=== PATIENT | female | born 1960 | race Caucasian/White ===

== ENCOUNTER 2018-03-13 14:12 | Emergency (ER) | payer OTHER ==
[~2018-03-13] VITALS: Ht 162.6 cm; Wt 107.0 kg
[2018-03-13] MEDS ORDERED: EFFEXOR XR150 MG PO (14:25)
[2018-03-13] MEDS ORDERED: VASOTEC10 MG PO (14:25)
[2018-03-13] MEDS ORDERED: METFORMIN HCL500 MG PO (14:25)
[2018-03-13] MEDS ORDERED: LIPITOR20 MG PO (14:26)
[2018-03-13] MEDS ORDERED: CLONAZEPAM2 MG PO (14:26)
== END 2018-03-13 17:55 | disposition home or self-care (01) ==
LOC: ER 14:12
DX: N20.1 Calculus of ureter (principal)

== ENCOUNTER 2018-05-02 10:37 | Outpatient (CLI) | payer OTHER ==
[~2018-05-02 10:37] MED LIST: CLONAZEPAM2 MG PO; EFFEXOR XR150 MG PO; LIPITOR20 MG PO; METFORMIN HCL500 MG PO; VASOTEC10 MG PO
== END 2018-05-02 10:46 | disposition home or self-care (01) ==
LOC: RAD 10:37
DX: N20.1 Calculus of ureter (principal)

== ENCOUNTER → 2018-06-14 | Outpatient (CLI) | payer OTHER | END | disposition home or self-care (01) | LOC: MRI 12:18 | DX: M54.5 Low back pain (principal); M54.2 Cervicalgia | CPT/HCPCS: 72141; 72148; 73721 ==

== ENCOUNTER 2019-01-11 08:39 | Outpatient (CLI) | payer OTHER | END 2019-01-11 11:25 | disposition home or self-care (01) | LOC: RAD 501 08:39 | DX: M25.561 Pain in right knee (principal); M25.562 Pain in left knee ==

== ENCOUNTER → 2019-09-11 | Day surgery (SDC) | payer OTHER ==
[~2019-09-11] MED LIST changes: +ADULT LOW DOSE81 M1 PO; +CLARINEX-D 121 EACH PO; +COZAAR100 MG PO; +DULOXETINE HCL40 MG PO; +LYRICA CR165 MG PO; +NABUMETONE750 MG PO; +PERCOCET 5-3251 EACH PO; +PROTONIX40 MG PO; +RESTORIL30 MG PO; +SINGULAIR10 MG PO
== END | disposition home or self-care (01) ==
LOC: CIR.AMB 05:00 → SURG 07:00 → EDSTATUS 07:00 → CIR.AMB 07:00
DX: M23.321 Other meniscus derangements, posterior horn of medial meniscus, right knee (principal); M23.341 Other meniscus derangements, anterior horn of lateral meniscus, right knee

== ENCOUNTER 2019-11-29 09:41 | Outpatient (CLI) | payer OTHER | END 2019-11-29 09:52 | disposition home or self-care (01) | LOC: RAD 09:41 | DX: M25.561 Pain in right knee (principal); M25.562 Pain in left knee ==

== ENCOUNTER 2020-04-01 09:59 | Outpatient (CLI) | payer OTHER | END 2020-04-01 10:08 | disposition home or self-care (01) | LOC: LAB 09:59 | PROVIDERS: ATTEND Urology | DX: N30.00 Acute cystitis without hematuria (principal) ==

== ENCOUNTER → 2021-03-24 13:20 | Outpatient (CLI) | payer OTHER | END | disposition home or self-care (01) | LOC: LAB 13:20 | PROVIDERS: ATTEND Urology | DX: N30.00 Acute cystitis without hematuria (principal) ==

== ENCOUNTER 2021-09-08 08:20 | Inpatient (IN) | payer OTHER ==
[~2021-09-08] VITALS: Ht 162.6 cm; Wt 113.4 kg
== END 2021-09-10 16:38 | DRG 470 ==
LOC: SURH 08:20 → O/R 09:14 → SURH 13:30 → SURG 20:59
PROVIDERS: ADMIT Orthopaedic Surgery; ATTEND Orthopaedic Surgery
PROC: 0SRD0J9 Replacement of Left Knee Joint with Synthetic Substitute, Cemented, Open Approach (ICD-10-PCS; principal; 2021-09-08 13:30)
DX: M17.12 Unilateral primary osteoarthritis, left knee (principal); D62 Acute posthemorrhagic anemia; M85.662 Other cyst of bone, left lower leg; I10 Essential (primary) hypertension; E66.9 Obesity, unspecified; E78.00 Pure hypercholesterolemia, unspecified; M65.9 Synovitis and tenosynovitis, unspecified

== ENCOUNTER 2022-02-17 12:31 | Outpatient (CLI) | payer OTHER | END 2022-02-17 12:33 | disposition home or self-care (01) | LOC: RAD 12:31 | PROVIDERS: ATTEND Orthopaedic Surgery | DX: M25.561 Pain in right knee (principal); M25.562 Pain in left knee ==

== ENCOUNTER → 2022-12-17 | Outpatient (CLI) | payer OTHER | END | disposition home or self-care (01) | LOC: RAD 09:30 | DX: M06.89 Other specified rheumatoid arthritis, multiple sites (principal) ==

== ENCOUNTER 2023-01-16 13:17 | Emergency (ER) | payer OTHER ==
[~2023-01-16] VITALS: Ht 160 cm; Wt 108.9 kg
== END 2023-01-16 18:46 | disposition home or self-care (01) ==
LOC: ER 13:17
DX: N23 Unspecified renal colic (principal); K59.00 Constipation, unspecified; K57.30 Diverticulosis of large intestine without perforation or abscess without bleeding; E13.69 Other specified diabetes mellitus with other specified complication; E78.00 Pure hypercholesterolemia, unspecified; I10 Essential (primary) hypertension; R11.10 Vomiting, unspecified; Z91.013 Allergy to seafood; Z88.0 Allergy status to penicillin

== ENCOUNTER 2023-01-19 00:17 | Emergency (ER) | payer OTHER ==
[~2023-01-19] VITALS: Ht 162.6 cm; Wt 108.9 kg
[2023-01-19] MEDS ORDERED: ACETAMINOPHEN-1 EAC2 PO (05:54)
[2023-01-19] MEDS ORDERED: CIPRO500 MG PO (05:54)
== END 2023-01-19 06:01 ==
LOC: ER 00:17
DX: R31.9 Hematuria, unspecified (principal); R10.30 Lower abdominal pain, unspecified; E11.9 Type 2 diabetes mellitus without complications; Z79.84 Long term (current) use of oral hypoglycemic drugs; I10 Essential (primary) hypertension; Z88.0 Allergy status to penicillin; Z91.013 Allergy to seafood

== ENCOUNTER 2024-07-06 12:08 | Outpatient (CLI) | payer OTHER ==
[~2024-07-06 12:08] MED LIST changes: +ACETAMINOPHEN-1 EAC2 PO; +CIPRO500 MG PO
== END 2024-07-06 12:11 | disposition home or self-care (01) ==
LOC: MRI 12:08
PROVIDERS: ATTEND Orthopaedic Surgery
DX: M25.551 Pain in right hip (principal); M25.552 Pain in left hip; M79.642 Pain in left hand
CPT/HCPCS: 73221

== ENCOUNTER 2024-08-29 12:11 | Outpatient (CLI) | payer OTHER | END 2024-08-29 12:24 | disposition home or self-care (01) | LOC: RAD 12:11 | PROVIDERS: ATTEND Orthopaedic Surgery | DX: M79.642 Pain in left hand (principal); M79.645 Pain in left finger(s); M25.561 Pain in right knee; M25.562 Pain in left knee; R93.6 Abnormal findings on diagnostic imaging of limbs ==

== ENCOUNTER 2024-10-10 09:41 | Outpatient (CLI) | payer OTHER | END 2024-10-10 09:53 | disposition home or self-care (01) | LOC: RAD 09:41 | PROVIDERS: ATTEND Orthopaedic Surgery | DX: T84.033D Mechanical loosening of internal left knee prosthetic joint, subsequent encounter (principal) ==

== ENCOUNTER 2025-05-01 10:20 | Outpatient (CLI) | payer OTHER ==
[2025-05-01 11:38] LABS: ALT/SGPT 33.0 U/L (12-78); AST/SGOT 20.0 U/L (15-37); BILIRUBIN TOTAL 0.61 mg/dL (0.3-1.2); BUN CREA RATIO 17.0 (7.0-25.0); CREATININE SERUM 1.05 mg/dL (0.55-1.02); GFR 53.1; GLOBULINA 4.3 G/DL (2.4-3.5); GLUCOSE FASTING 93.0 mg/dL (65-100); OSMOLALITY SERUM 292.0 MOSM/KG (275-295)
[2025-05-01 11:39] LABS: BASO % 0.9 % (0.1-1.2); EOS # 0.15 (0.04-0.54); EOS % 2.2 % (0.7-7.0); LYMPH # 1.56 (1.18-3.74); LYMPH % 23.4 % (19.3-53.1); MEAN PLATELET VOLUME 10.80 fl (9.4-12.4); MONO # 0.48 (0.24-0.82); MONO % 7.2 % (4.7-12.5); NEUT # 4.42 (1.56-6.13); NEUT % 66.2 % (34.0-71.1); RED CELL DISTRIBUTION WIDTH 13.9 % (11.6-14.4)
== END 2025-05-01 10:29 | disposition home or self-care (01) ==
LOC: LAB 10:20
PROVIDERS: ATTEND Internal Medicine Gastroenterology
DX: K59.01 Slow transit constipation (principal); K29.00 Acute gastritis without bleeding; K29.30 Chronic superficial gastritis without bleeding; K21.00 Gastro-esophageal reflux disease with esophagitis, without bleeding; K66.0 Peritoneal adhesions (postprocedural) (postinfection); R10.10 Upper abdominal pain, unspecified; K76.0 Fatty (change of) liver, not elsewhere classified; K44.9 Diaphragmatic hernia without obstruction or gangrene; R11.0 Nausea